=== PATIENT | male | born 1990 | race Caucasian/White ===

== ENCOUNTER 2016-07-10 22:36 | Emergency (ER) | payer SELFPAY ==
--- NOTE | 2016-07-10 23:06 | ER PHYSICIAN DOCUMENTATION ---
Physician Documentation [facility] Name:Aram Ayala Age:25 yrs Sex:Male :1990 Arrival Date:07/10/2016 Time:22:36 Bed4 Private MD: Oscar Gallegos Disposition: 07/10/16 22:57 Discharged to Home/Self Care. Impression: Sinusitis Maxillary. - Condition is Good. - Discharge Instructions: SINUSITIS, Abx Tx. - Prescriptions for Augmentin 875- 125 mg Oral Tablet - take 1 tablet by ORAL route every 12 hours for 10 days; 20 tablet. - Medical Reconciliation form form. - Follow up: Private Physician; When: As needed; Reason: Continuance of care. - Problem is new. - Symptoms have improved. HPI: 07/10 23:00 This 25 yrs old Male presents to ER via Walk In with complaints of Facial jm Swelling. 23:00 The patient presents with nasal drainage, that is purulent. Onset: The jm symptom(s)/episode began/occurred 3 week(s) ago. Modifying factors: the symptoms are aggravated by nothing. Associated signs and symptoms: Pertinent positives: facial pain. LANE. The patient has not experienced similar symptoms in the past. Pt has "had it" with his congestion. He's been stuffed up a purulent snot for 3 weeks and now it hurts his face, teeth and ears. Pt denies fever. Historical: - Allergies: No known drug Allergies; - Home Meds: 1. None - PMHx: None; - PSHx: None; - Tetanus: < 10 years. - Ebola Screening: : Patient negative for fever greater than or equal to 101.5 degrees Fahrenheit, and additional compatible Ebola Virus Disease symptoms. - Immunization history: Flu Vaccine None. - Social history: Smoking status: Patient uses tobacco products, current every day smoker. ROS: 23:00 Constitutional: Negative for fever. jm 23:00 ENT: Positive for dental pain, ear pain, sinus congestion, sinus pain. 23:00 Respiratory: Negative for cough, shortness of breath. 23:00 Abdomen/GI: Negative for abdominal pain, nausea, vomiting, diarrhea. Exam: 23:00 Constitutional: The patient appears alert, awake, comfortable. jm 23:00 Head/face: Exam is negative for swelling, Sinus tenderness, that is moderate, is located over the right maxillary sinus and left maxillary sinus. 23:00 ENT: Nose: Nasal mucosa: erythematous, Turbinates: are swollen bilaterally. 23:00 Cardiovascular: Rate: tachycardic, Rhythm: regular. 23:00 Respiratory: Respirations: normal, Breath sounds: are normal. Vital Signs: 22:35 BP 158 / 96; Pulse 105; Resp 16; Temp 98.6; Pulse Ox 95% on R/A; Weight 95.25 kg; rh Height 6 ft. 1 in. (185.42 cm); Pain 10/10; 23:05 BP 145 / 86; Pulse 101; Resp 16; Pulse Ox 96% on R/A; rh 22:35 Body Mass Index 27.71 (95.25 kg, 185.42 cm) MDM: 22:40 Patient medically screened. 07/11 11:37 Differential diagnosis: sinusitis. Data reviewed: vital signs, nurses notes, and as a result, I will discharge patient. Counseling: I had a detailed discussion with the patient and/or guardian regarding: the historical points, exam findings, and any diagnostic results supporting the discharge/admit diagnosis, the need for outpatient follow up, with the patient's primary care provider. ED course: Will give a course of augmentin . Dispensed Medications: 07/10 23:04 Drug: HYDROcodone-acetaminophen (5mg/325 mg) 1-2 tabs 1 tabs; Route: PO; 23:05 Follow up: Response: Pharmacy closed - take home med pack 23:04 Drug: Augmentin 875 mg 1 tabs; Route: PO; 23:05 Follow up: Response: Medication administered at discharge. Signatures: Oscar Miranda MD MD jm Hofsess, Rachel
--- NOTE | 2016-07-10 23:06 | ER NURSING DOCUMENTATION ---
Nurse's Notes [facility] Name:Aram Ayala Age:25 yrs Sex:Male :1990 Arrival Date:07/10/2016 Time:22:36 Bed4 Private MD: Diagnosis:Sinusitis Maxillary Presentation: 07/10 22:38 Acuity: BALTAZAR 4 22:54 Presenting complaint: Patient states: for 3-4 days patient has had minor tooth pain and rh left ear pain along with a runny nose. However last night he states the pain became unbearable between the ears and tooth. Transition of care: Home. 22:54 Method Of Arrival: Walk In Triage Assessment: 22:55 General: Appears in no apparent distress, Behavior is cooperative. Pain: Complains of rh pain in upper left first molar. EENT: Ear canal clear on right ear and left ear. Neuro: Level of Consciousness is awake, alert, obeys commands. Cardiovascular: Capillary refill < 3 seconds. Respiratory: Airway is patent Respiratory effort is even, unlabored, Respiratory pattern is regular, symmetrical, Breath sounds are clear bilaterally. GI: Abdomen is non- distended Denies diarrhea, nausea, vomiting. : No deficits noted. Derm: Skin is intact, is healthy with good turgor, Skin is pink, warm & dry. Musculoskeletal: Circulation, motion, and sensation intact Range of motion intact in all extremities. Historical: - Allergies: No known drug Allergies; - Home Meds: 1. None - PMHx: None; - PSHx: None; - Tetanus: < 10 years. - Ebola Screening: : Patient negative for fever greater than or equal to 101.5 degrees Fahrenheit, and additional compatible Ebola Virus Disease symptoms. - Immunization history: Flu Vaccine None. - Social history: Smoking status: Patient uses tobacco products, current every day smoker. Screenin:57 Infectious Disease Risk None. Abuse screen: Denies threats or abuse. Denies injuries rh from another. Nutritional screening: No deficits noted. Assessment: 22:57 See Triage Assessment done by same RN. Vital Signs: 22:35 BP 158 / 96; Pulse 105; Resp 16; Temp 98.6; Pulse Ox 95% on R/A; Weight 95.25 kg; rh Height 6 ft. 1 in. (185.42 cm); Pain 10/10; 23:05 BP 145 / 86; Pulse 101; Resp 16; Pulse Ox 96% on R/A; rh 22:35 Body Mass Index 27.71 (95.25 kg, 185.42 cm) ED Course: 22:35 Notified ED Physician of patient's arrival and chief complaint. Dr. Miranda notified. rh 22:37 Patient arrived in ED. ma1 22:38 Triage completed. 22:54 Haven Ledesma is Primary Nurse. 22:56 Oscar Miranda MD is Attending Physician. 22:57 Valuables Remains with patient Patient has correct armband on for positive rh identification. Administered Medications: 23:04 Drug: HYDROcodone-acetaminophen (5mg/325 mg) 1-2 tabs 1 tabs; Route: PO; 23:05 Follow up: Response: Pharmacy closed - take home med pack rh 23:04 Drug: Augmentin 875 mg 1 tabs; Route: PO; 23:05 Follow up: Response: Medication administered at discharge. Outcome: 22:57 Discharge ordered by . 23:05 Discharged to home ambulatory. 23:05 Condition: stable 23:05 Discharge instructions given to patient, Instructed on discharge instructions, follow up and referral plans. medication usage. 23:05 Patient left the ED. 07/11 09:39 Discharge F/U Call: Unable to reach: left voicemail: bassem Signatures: Oscar Miranda MD MD jm Hofsess, Rachel Samira Piper, RN RN Dee Dee [facility]
[2016-07-10] MEDS ORDERED: HYDROcodone/APAP PREPAC 5/325 1 TAB TABLET PO ONE (23:08)
[2016-07-10] MEDS ORDERED: AMOX TR/CLAV 875/125 MG 1 TAB TABLET PO ONE (23:08)
== END 2016-07-10 23:06 | disposition home or self-care (01) ==
LOC: ER 22:36
DX: J32.0 Chronic maxillary sinusitis (principal); F17.210 Nicotine dependence, cigarettes, uncomplicated
CPT/HCPCS: 99283